=== PATIENT | female | born 1995 | race Caucasian/White ===

== ENCOUNTER → 2022-08-21 08:36 | Outpatient (BNVA) | payer BC, SELFPAY | PROVIDERS: PCP Internal Medicine; Visit Provider Nurse Practitioner Family ==

== ENCOUNTER → 2022-09-28 10:59 | Outpatient (REF) | payer BC, SELFPAY | LOC: HO.SL 10:59 | PROVIDERS: PCP Internal Medicine; Visit Provider Nurse Practitioner Family | DX: G47.10 Hypersomnia, unspecified (principal); G47.19 Other hypersomnia; G47.9 Sleep disorder, unspecified; R06.83 Snoring | CPT/HCPCS: 95806 ==

== ENCOUNTER → 2022-09-28 11:21 | Outpatient (BNV) | payer BC, SELFPAY | PROVIDERS: PCP Internal Medicine; Visit Provider Psychiatry & Neurology Neurology | DX: R06.83 Snoring (principal) | CPT/HCPCS: 95806 ==

== ENCOUNTER 2022-12-06 11:27 | Outpatient (AMB) | payer BC, SELFPAY ==
--- NOTE | 2022-12-06 11:37 | MHC.OFFVIS ---
Intake Vital Signs 12/06/22 11:39 Height 5 ft 6 in Weight 221 lb BMI 35.7 BP 118/84 Blood Pressure Location Rt brachial Position Sitting Pulse 84 Pulse Source Pulse Oximeter Pulse Oximetry (%) 98 Oxygen Delivery Method Room Air Intake Visit Reasons: 3m follow up Migraines-Confirmed Intake Note: Patient presents for 3 month follow up migraines. Patient states headaches are still present. Allergies latex Allergy (Unknown, Verified 12/06/22 11:39) Unknown Medication List - Last Reconciled 12/06/22 by ELSIE George cyanocobalamin (vitamin B-12) PO DAILY hydroxyzine HCl 25 mg PO DAILY lactobacillus combination no.4 (Probiotic) 3,000 mmu cells PO DAILY magnesium oxide 400 mg PO BEDTIME 30 days riboflavin (vitamin B2) 400 mg PO DAILY 30 days sertraline 75 mg PO DAILY sertraline 25 mg orally per taper directions; 14 days sumatriptan succinate 50 - 100 mg orally at onset of headache, may repeat in 2 hrs PRN; max 2 tabs per day or 4 tabs/week (may take with Ibuprofen) 30 days HPI HPI Comments History of Present Illness Details 27-yr-old female presents for f/u visit. Pt denies any significant interval medical changes. She is having less milder headaches. Now about 4-5 TTH headache days in the past month. She had a migraine headache about 2 weeks when she had the start of a cold. She has had 2 more severe migraines since her last visit her. Sumatriptan was helpful but caused cognitive fogginess. Magnesium- caused insomnia. She still feels tired all the time. Her HST was inconclusive and she has been referred for in-lab PSG/MSLT- sched in Nov at ? [facility] Social History Alcohol intake: current Alcohol intake frequency: a few times a week Patient Tobacco Use Status: Never used Tobacco Review of Systems Const All systems reviewed & are unremarkable except as noted in HPI and below Physical Exam Vital Signs: Last Vital Signs Pulse 84 12/06/22 11:39 BP 118/84 12/06/22 11:39 Pulse Ox 98 12/06/22 11:39 Oxygen Delivery Method Room Air 12/06/22 11:39 BMI result Body Mass Index 35.7 Const General: cooperative and no acute distress Orientation/consciousness: patient oriented x3 HEENT Head: Yes normocephalic Resp Effort & Inspection: normal respiratory effort and able to speak in complete sentences Neuro General: patient oriented x3, gait normal and CN's II-XI intact bilaterally Cognition (Neuro): normal cognition Motor exam (neuro): 5/5 motor strength present throughout Psych Appearance: grossly normal Mental Status: mental status grossly normal Speech and movement: Normal speech and movement present Affect: normal affect Attitude: cooperative Thought process: Normal thought process present Thought content: Normal thought content present Insight: Good insight present (Psych) Judgement: Good judgement present (Psych) Assessment & Plan Assessment & Plan (1) Migraine without aura: Code(s): G43.009 - Migraine without aura, not intractable, without status migrainosus (2) Hypersomnia: Code(s): G47.10 - Hypersomnia, unspecified (3) Excessive daytime sleepiness: Code(s): G47.19 - Other hypersomnia (4) Snoring: Code(s): R06.83 - Snoring (5) Sleep difficulties: Code(s): G47.9 - Sleep disorder, unspecified Plan For sleep difficulties: Reviewed HST- inconclusive. 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 Pt is aware to wean off her sertraline at least 3 weeks prior to MSLT. ? For overall headache management: Track headaches. For acute headache treatment: Hold Sumatriptan 100mg tab- causes some cognitive fogginess. Trial Rizatriptan prn. Previous acute migraine medication trials: Fioricet- not tolerated Acute migraine medication contraindications: None at this time ? For headache prevention medication: Continue Riboflavin 400mg qam Stop Magnesium 400mg qhs Previous migraine prevention medication trials: Magnesium- caused insomnia. Migraine prevention medication contraindications: None ? Pt to follow-up in 3-4 months or sooner prn. Medications: New rizatriptan max 2 tabs per day or 4 tabs per week 5 - 10 mg (0.5 - 1 x 10 mg) PO Q2H 21 days PRN 12 tabs 3RF migraine headache Discontinued magnesium oxide may hold for loose stools Discontinued Reason: Patient no longer taking 400 mg PO BEDTIME 30 days 30 tabs 6RF Coding Level of Care Code Est Pt Level 4 (62726) Diagnoses Migraine without aura G43.009 Hypersomnia G47.10 Excessive daytime sleepiness G47.19 Snoring R06.83 Sleep difficulties G47.9
[2022-12-06 11:39] VITALS: BP 118/84; PULSE 84; O2SAT 98; BMI 35.7
== END 2022-12-06 12:13 | disposition home or self-care (01) ==
PROVIDERS: PCP Internal Medicine; Visit Provider Nurse Practitioner Family
DX: G43.009 Migraine without aura, not intractable, without status migrainosus (principal); G47.10 Hypersomnia, unspecified; G47.19 Other hypersomnia; R06.83 Snoring; G47.9 Sleep disorder, unspecified
CPT/HCPCS: 99214

== ENCOUNTER → 2022-12-06 11:27 | Outpatient (BNVA) | payer BC, SELFPAY | PROVIDERS: PCP Internal Medicine; Visit Provider Nurse Practitioner Family ==

== ENCOUNTER 2023-11-21 08:57 | Outpatient (AMB) | payer OTHER, SELFPAY ==
--- NOTE | 2023-11-21 09:04 | MHC.OFFVIS ---
Vital Signs 11/21/23 09:20 Height 5 ft 6 in Weight 213 lb BMI 34.4 Intake Visit Reasons: 3m follow up Migraines Intake Note: Patient presents for migraines. headcahes aren't any better meds help to shorten them but not go away. Allergies latex Allergy (Unknown, Verified 11/21/23 09:19) Unknown Medication List - Last Reconciled 11/21/23 by ELSIE George cyanocobalamin (vitamin B-12) PO DAILY hydroxyzine HCl 25 mg PO DAILY lactobacillus combination no.4 (Probiotic) 3,000 mmu cells PO DAILY riboflavin (vitamin B2) 400 mg PO DAILY 30 days rizatriptan 5 - 10 mg (0.5 - 1 x 10 mg) PO Q2H PRN 21 days sertraline 75 mg PO DAILY sertraline 25 mg orally per taper directions; 14 days sumatriptan succinate 50 - 100 mg orally at onset of headache, may repeat in 2 hrs PRN; max 2 tabs per day or 4 tabs/week (may take with Ibuprofen) 30 days HPI Comments Details: 28-yr-old female presents for f/u visit. Pt denies any significant interval medical changes. She did have in-lab PSG w/ MSLT- which was noatbel for snoring, but did not show sleep apnea, hypoxemia, hypersomnia, or Narcolepsy. She had a migraine in June. She has had episodes where it will feel pain between the eyes but does not become a full attack. Is having daily tension type headache, bifrontal pulling headache a/w nausea. Is having 4 headache free days per month. The Rizatriptan also causes cognitive difficulties- cannot drive, so has to leave work and get home before taking it- takes about 30 minutes to get home. She is using Botox 50 units across her forehead to ease tension type headaches, but does not seem to working as well. [facility] Social History Alcohol intake: current Alcohol intake frequency: a few times a week Patient Tobacco Use Status: Never used Tobacco Physical Exam Vital Signs: BMI result Body Mass Index 34.4 Const General: cooperative and no acute distress Orientation/consciousness: patient oriented x3 Resp Effort & Inspection: normal respiratory effort and able to speak in complete sentences Neuro General: patient oriented x3 Cranial nerves: Yes CN's II-XII intact bilaterally Cognition (Neuro): normal cognition Psych Appearance: grossly normal Mental Status: mental status grossly normal Speech and movement: Normal speech and movement present Affect: normal affect Attitude: cooperative Assessment & Plan Assessment & Plan (1) Chronic migraine without aura: Comment: Near daily bifrontal pulling headache a/w nausea- is c/w chronic migraine dx. TTH would not include nausea. Code(s): G43.709 - Chronic migraine without aura, not intractable, without status migrainosus Category: Medical (2) Snoring: Code(s): R06.83 - Snoring Category: Medical (3) Migraine without aura: Code(s): G43.009 - Migraine without aura, not intractable, without status migrainosus Category: Medical Plan For sleep difficulties: Reviewed in-lab PSG/MSLT- normal, w/ exception of snoring. Trial OTC snore aides- such as breathe-rights tip or muse. ? For overall headache management: Track headaches. Trial Acupuncture. ? For acute headache treatment: Hold Rizatriptan prn- not toelrated and not fully effective. Trial Rimegepant ODT (Nurtec ODT) 75mg, 1 tab every other day. Max of 1 tabs (75mg) per 24 hours. May adjunct with OTC Tylenol 650mg q 4 hours, Ibuprofen 600mg q 6 hours, or Naproxen 440mg q 12 hrs prn. Potential adverse effects, include but are not limited to fatigue, nausea, dry mouth, constipation. Previous acute migraine medication trials: Fioricet- not tolerated. Sumatriptan 100mg tab- causes cognitive fogginess. Rizatriptan- causes cognitive fogginess and not fully effective. Acute migraine medication contraindications: None at this time ? For headache prevention medication: Continue Riboflavin 400mg qam Start Amitriptyline [10]mg daily at bedtime. Potential side effects include but are not limited to fatigue, cardiac arrhythmias, mood changes. Previous migraine prevention medication trials: Magnesium- caused insomnia. Migraine prevention medication contraindications: None Future considerations- CGRP MaB, Botox for CM. ? Pt to follow-up in 6 months or sooner prn. Orders: Referrals Acupuncture Referral G43.709 - Chronic migraine without aura, not intractable, without status migrainosus, R06.83 - Snoring Medications: New amitriptyline 10 mg PO BEDTIME 30 days 30 tabs 3RF rimegepant (Nurtec ODT) 75 mg PO ONCE 30 days PRN 16 tabs 3RF migraine headache MDD 1 tab Discontinued sumatriptan succinate Discontinued Reason: Doctor's Order (0.5 - 1 x 100 mg) 50 - 100 mg orally at onset of headache, may repeat in 2 hrs PRN; max 2 tabs per day or 4 tabs/week (may take with Ibuprofen) 30 days 12 tabs 6RF migraine headache Coding Level of Care Code Est Pt Level 4 (28505) Diagnoses Chronic migraine without aura G43.709 Snoring R06.83 Migraine without aura G43.009
[2023-11-21 09:20] VITALS: BMI 34.4
== END 2023-11-21 10:05 | disposition home or self-care (01) ==
PROVIDERS: PCP Internal Medicine; Visit Provider Nurse Practitioner Family
DX: G43.709 Chronic migraine without aura, not intractable, without status migrainosus (principal); R06.83 Snoring
CPT/HCPCS: 99214

== ENCOUNTER → 2023-11-21 08:57 | Outpatient (BNVA) | payer OTHER, SELFPAY | PROVIDERS: PCP Internal Medicine; Visit Provider Nurse Practitioner Family ==

== ENCOUNTER 2024-06-03 08:46 | Outpatient (AMB) | payer OTHER, SELFPAY ==
--- NOTE | 2024-06-03 09:10 | MHC.OFFVIS ---
Vital Signs 06/03/24 09:12 Height 5 ft 6 in Weight 208 lb BMI 33.6 BP 112/72 Blood Pressure Location Rt brachial Position Sitting Pulse 78 Pulse Source Pulse Oximeter Pulse Oximetry (%) 95 Oxygen Delivery Method Room Air Intake Visit Reasons: Follow Up Intake Note: Patient presents follow up migraine medication Echocardiography Radiology Technologist Required: No Accompanied by: Self / Same As Patient Allergies latex Allergy (Unknown, Verified 06/03/24 09:11) Unknown Medication List - Last Reconciled 06/03/24 by ELSIE George amitriptyline 10 mg PO BEDTIME 30 days cyanocobalamin (vitamin B-12) PO DAILY hydroxyzine HCl 25 mg PO DAILY isotretinoin (Accutane) 30 mg PO BID lactobacillus combination no.4 (Probiotic) 3,000 mmu cells PO DAILY riboflavin (vitamin B2) 400 mg PO DAILY 30 days rimegepant (Nurtec ODT) 75 mg PO ONCE PRN 30 days MDD 1 tab rizatriptan 5 - 10 mg (0.5 - 1 x 10 mg) PO Q2H PRN 21 days sertraline 75 mg PO DAILY sertraline 25 mg orally per taper directions; 14 days HPI Comments Details: 29-yr-old female presents for f/u visit of migraine. Pt denies any significant interval medical changes. However, she has started on Accutane to help treat cystic acne- she has taken this in the past. She has started head-a-term, an eTNS neuromodulaion migraine device. She is using it most nights before bed, and finds beneficial while using it, but can feel the forehead because tense again after taking it off. Patient reports she is still having daily tension headache. She is having 2 breakthrough full migraine attacks per month. She did not start Amitriptyline- was worried about taking a long-term antidepressant She has not had Botox in a while, was using Botox 50 units across her forehead to help ease the tension type headache. Wonders she could start Botox for migraine prevention. She did try Nurtec, unfortunately she did not tolerate it it caused abdominal pain and nausea. Unsure if it actually help the migraine or not. Previous in-lab PSG w/ MSLT- which was notable for snoring, but did not show sleep apnea, hypoxemia, hypersomnia, or Narcolepsy. She did not resume the sertraline after having MSLT, and states her mood has been stable since. [facility] Social History Alcohol intake: current Alcohol intake frequency: a few times a week Patient Tobacco Use Status: Never used Tobacco Physical Exam Vital Signs: Last Vital Signs Pulse 78 06/03/24 09:12 BP 112/72 06/03/24 09:12 Pulse Ox 95 06/03/24 09:12 Oxygen Delivery Method Room Air 06/03/24 09:12 BMI result Body Mass Index 33.6 Const General: cooperative and no acute distress Orientation/consciousness: patient oriented x3 Resp Effort & Inspection: normal respiratory effort and able to speak in complete sentences Neuro General: patient oriented x3 Cranial nerves: Yes CN's II-XII intact bilaterally Cognition (Neuro): normal cognition Psych Appearance: grossly normal Mental Status: mental status grossly normal Speech and movement: Normal speech and movement present Affect: normal affect Attitude: cooperative Assessment & Plan Assessment & Plan (1) Chronic migraine without aura: Comment: Near daily bifrontal pulling headache a/w nausea- is c/w chronic migraine dx. TTH would not include nausea. Code(s): G43.709 - Chronic migraine without aura, not intractable, without status migrainosus Category: Medical (2) Snoring: Code(s): R06.83 - Snoring Category: Medical (3) Migraine without aura: Code(s): G43.009 - Migraine without aura, not intractable, without status migrainosus Category: Medical Plan For sleep difficulties: Previous in-lab PSG/MSLT- normal, w/ exception of snoring. May use OTC snore aides- such as breathe-rights tip or muse. ? For overall headache management: Track headaches. Patient did not start Acupuncture- became hesitant to do this due to the number of needles involved. ? For acute headache treatment: Discontinue Nurtec order-not tolerated-cause GI symptoms. Trial Eletriptan 10mg tab, 1/2 - 1 tab (20-40 mg) at onset of headache, may repeat in 2 hours. Max of 2 tabs (80 mg) per 24 hours. May adjunct with OTC Tylenol 650mg every 4 hours, Ibuprofen (liquigel) 600mg every 6 hours, or Naproxen (liquigel) 440mg every 12 hrs as needed. Potential adverse effects of triptans, include but are not limited to nausea, fatigue, chest tightness/tingling (usually passes within a few minutes), medication overuse headaches. Previous acute migraine medication trials: Fioricet- not tolerated. Sumatriptan 100mg tab- causes cognitive fogginess. Rizatriptan- causes cognitive fogginess and not fully effective. Nurtec-not tolerated due to GI symptoms. Acute migraine medication contraindications: None at this time Future considerations: Zomig, Zomig/sumatriptan nasal spray, Ubrelvy, [place], diclofenac, to [place]. ? For headache prevention medication: Continue eTNS neuromodulation therapy, head-a-term, daily to twice a day for migraine prevention. Continue Riboflavin 400mg qam Again trial Amitriptyline [10]mg daily at bedtime. Potential side effects include but are not limited to fatigue, cardiac arrhythmias, mood changes. Discuss that at this time, her migraine attack frequency is c/w an episodic migraine phenotype, which does not make her a candidate to trial Botox for chronic migraine (as Botox is not approved for episodic migraine treatment). Previous migraine prevention medication trials: Magnesium- caused insomnia. Migraine prevention medication contraindications: None Future considerations- CGRP MaB, Botox for CM. ? Pt to follow-up in 6 months or sooner prn. Medications: New eletriptan take 1 tab at onset of headache; if no relief, may repeat 1 tab after at least 2 hrs; max = 2 tabs/24 hrs orally 2 times a day PRN; 12 tabs 6RF migraine headache 30 days Changed From amitriptyline 10 mg PO BEDTIME 30 days 30 tabs 3RF To amitriptyline take no later than 9pm 10 mg PO BEDTIME 30 tabs 3RF 30 days Discontinued sertraline Discontinued Reason: Doctor's Order 25 mg orally per taper directions; 14 days 30 tabs 0RF rizatriptan max 2 tabs per day or 4 tabs per week Discontinued Reason: Doctor's Order 5 - 10 mg (0.5 - 1 x 10 mg) PO Q2H 21 days PRN 12 tabs 3RF migraine headache rimegepant (Nurtec ODT) Discontinued Reason: Doctor's Order 75 mg PO ONCE 30 days PRN 16 tabs 3RF migraine headache MDD 1 tab Coding Level of Care Code Est Pt Level 4 (87612) Diagnoses Chronic migraine without aura G43.709 Snoring R06.83 Migraine without aura G43.009
[2024-06-03 09:12] VITALS: BP 112/72; PULSE 78; O2SAT 95; BMI 33.6
== END 2024-06-03 10:14 | disposition home or self-care (01) ==
LOC: HO.HSMS 08:47
PROVIDERS: PCP Internal Medicine; Visit Provider Nurse Practitioner Family
DX: G43.709 Chronic migraine without aura, not intractable, without status migrainosus (principal); R06.83 Snoring
CPT/HCPCS: 99214